=== PATIENT | female | born 1985 ===

== ENCOUNTER → 2018-08-19 | Outpatient (CLI) | payer OTHER ==
[2018-08-19 16:13] LABS: PLATELET COUNT, AUTOMATED 256 K/uL (150-450)
== END ==
LOC: LAB 15:55
PROVIDERS: ATTEND Internal Medicine
DX: M84.30XA Stress fracture, unspecified site, initial encounter for fracture (principal)
CPT/HCPCS: 36415; 82040; 82247; 82306; 82310; 82374; 82435; 82565; 82728; 82947; 83540; 83550; 83970; 84075; 84132; 84155; 84295; 84439; 84443; 84450; 84460; 84520; 85025

== ENCOUNTER → 2018-08-26 | Outpatient (CLI) | payer OTHER ==
--- NOTE | 2018-08-26 16:42 | RADIOLOGY IMAGING REPORT ---
[place] [facility] [place] NAME: Ene Lazar : 1985 MR: [id number] V: [id number] EXAM DATE: ORDERING PHYSICIAN: SPENCER MARLEY TECHNOLOGIST: Location: [facility] Patient: Ene Lazar : 1985 Visit/Account:[id number] Date of Sevice: 08/26/2018 DEXA Scan Clinical history: Osteopenia. Comparison: None available. LUMBAR SPINE: The bone mineral density (BMD) measured from L1-L4 correlates with a Z-score 0.8 and a T-score of 0.9 which is Normal as defined by the World Health Organization. The corresponding risk of fracture in the lumbar spine is Not increased compared with a young adult reference population. HIP: Bone mineral density (BMD) measured in the Left femoral neck region correlates with a Z-score 0.5 and a T-score of 0.3 which is Normal as defined by the World Health Organization. The corresponding ris k of fracture in the hip is Not increased compared with a young adult reference population. Bone mineral density (BMD) measured in the Femoral Neck region measures 1.086 g/cm2. Impression: 1. Lumbar spine: Normal. 2. Left femoral neck region: Normal. 3. Femoral Neck: Bone Mineral Density is 1.086 g/cm2 The next DEXA scan of this patient should include the following sites: L1-L4 and the left hip. FRAX? WHO Fracture Risk Assessment Tool link: <http://www.shef.ac.uk/FRAX/tool.jsp?locationValue=9> PLEASE NOTE: 1) The World Health Organization defines low BMD as follows: T-score Normal > -1 Osteopenia < -1 and > -2.5 Osteoporosis < -2.5 without fractures Established osteoporosis < -2.5 with fractures 2) In general, you may wish to consider: Diagnosis Treatment Follow-up DEXA Normal BMD Prevention 2-3 years Osteopenia Prevention/therapy 1-2 years Osteoporosis Therapy Yearly 3) Fracture risk estimated from the T-score is more accurate for vertebral fractures (often spontane ous) than for hip fractures. Report Dictated By: Slick Germain at 08/26/2018 4:35 PM Report E-Signed By: Slick Germain at 08/26/2018 4:38 PM WSN:[email or web address]
== END ==
LOC: RAD 01:28
PROVIDERS: ATTEND Internal Medicine
DX: M84.30XA Stress fracture, unspecified site, initial encounter for fracture (principal)
CPT/HCPCS: 77080